=== PATIENT | female | born 1960 | race Caucasian/White ===

== ENCOUNTER → 2024-09-24 11:57 | Outpatient (REF) | payer OTHER, SELFPAY | LOC: HWRAD 11:57 | PROVIDERS: ATTENDING PHYSICIAN Nurse Practitioner Adult Health; FAMILY PHYSICIAN Internal Medicine; REFERRING PHYSICIAN Family Medicine | DX: Z87.891 Personal history of nicotine dependence (principal) | CPT/HCPCS: 71271 ==